=== PATIENT | female | born 1975 | race African-American/Black ===

== ENCOUNTER → 2020-04-27 | Outpatient (CLI) | payer OTHER ==
--- NOTE | 2020-05-17 16:28 | REPMRS ---
Patient History The patient states she has not had a clinical breast exam in over a year. Patient had first child at age 33. Family history of pancreatic cancer at age 50 or over in maternal grandmother. Taking hormonal contraceptives for 11 years. Digital Woman Screen Mammo: April 27, 2020 - Exam #: [id number] Bilateral CC and MLO view(s) were taken. Technologist: Belle Vallejo, Technologist Prior study comparison: 2017, bilateral digital mammo screening bilat, [facility]. FINDINGS: The breast tissue is heterogeneously dense. This may lower the sensitivity of mammography. The Volpara volumetric breast density category is: C. There is a moderate amount of heterogeneously dense fibroglandular tissue which is fairly symmetric. There is no interval development of dominant mass, architectural distortion, or grouped microcalcification typical of malignancy. There has been no change in the appearance of the mammogram from the prior studies. 3-D tomosynthesis shows no additional findings. Assessment: BI-RADS/ACR category 1 mammogram. Negative Mammogram. Recommendation Routine screening mammogram of both breasts in 1 year (for women over age 40). This patient's Lifetime Breast Cancer RIsk is estimated at 13.6 %. This mammogram was interpreted with the aid of an FDA-approved computer-aided dectection system. Electronically Signed By: Anil Knight MD 05/17/20 [id number]
== END ==
LOC: M WHC 13:52
PROVIDERS: ATTEND Nurse Practitioner Women's Health
DX: Z12.31 Encounter for screening mammogram for malignant neoplasm of breast (principal); Z80.0 Family history of malignant neoplasm of digestive organs

== ENCOUNTER 2021-01-09 08:58 | Emergency (ER) | payer OTHER ==
[~2021-01-09] VITALS: Ht 177.8 cm; Wt 89.1 kg
--- NOTE | 2021-01-09 09:21 | REP ---
INDICATION: CHEST PAIN. COMPARISON: Comparison chest x-ray is from April 01, 2009. TECHNIQUE: Portable upright AP chest radiograph. FINDINGS: The lungs are well inflated and clear. The pleural angles are sharp. Pulmonary vasculature is not increased. The heart is prominent in size unchanged from the 2009 study. No acute bony abnormality.. IMPRESSION: Prominent heart size unchanged from prior study. Otherwise no acute disease.. <Electronically signed by Anil Knight > 01/09/21 0951
[2021-01-09 09:42] LABS: BASO % 0.6 % (0.0-1.0); EOS # 0.2 10^3/uL (0.0-0.5); EOS % 3.3 % (0.0-3.0); HEMATOCRIT 41.9 % (36.0-47.0); HEMOGLOBIN 13.4 g/dl (12.0-15.5); LYMPH # 1.2 10^3/uL (1.5-5.0); LYMPH % 22.8 % (24.0-44.0); MEAN CORPUSCULAR HEMOGLOBIN 27.7 pg (27.0-33.0); MEAN CORPUSCULAR VOLUME 86.7 fl (80.0-96.0); MONO # 0.4 10^3/uL (0.0-0.8); MONO % 7.2 % (2.0-8.0); NEUTROPHILS # 3.6 10^3/uL (1.5-8.5); NEUTROPHILS % 65.7 % (36.0-66.0); PLATELET COUNT, AUTOMATED 147 10^3/uL (150-450); RED BLOOD COUNT 4.83 10^6/uL (4.00-5.40); WHITE BLOOD COUNT 5.4 10^3/uL (4.0-10.0)
[2021-01-09] MEDS ORDERED: KETOROLAC 30 MG/ML 1ML VIAL IV ONE (09:45)
[2021-01-09] MEDS ORDERED: NS 1,000 ML IV ONE (10:00)
[2021-01-09 10:20] LABS: ALT/SGPT 38 U/L (12-78); BILIRUBIN,DIRECT 0.2 MG/DL (0.0-0.2); BILIRUBIN,TOTAL 0.6 MG/DL (0.2-1.0); BLOOD UREA NITROGEN 20 MG/DL (7-18); CALCIUM LEVEL 9.1 MG/DL (8.5-10.1); CARBON DIOXIDE LEVEL 30 MEQ/L (21-32); CHLORIDE LEVEL 106 MEQ/L (98-107); CREATININE FOR GFR 0.92 MG/DL (0.55-1.30); GLOMERULAR FILTRATION RATE > 60.0 (>58); GLUCOSE, FASTING 96 MG/DL (70-100); LIPASE 98 U/L (73-393); POTASSIUM SERUM 4.6 MEQ/L (3.5-5.1); SODIUM LEVEL 140 MEQ/L (136-145); TOTAL PROTEIN 7.4 GM/DL (6.4-8.2)
[2021-01-09] MEDS ORDERED: ISOVUE-370 76% 100ML VIAL As Ordered ONE (10:29)
--- NOTE | 2021-01-09 11:05 | REP ---
INDICATION: pleuritic CP COMPARISON: None. TECHNIQUE: CT angiography of the chest after the intravenous administration of 75 cc Isovue 370. Attention pulmonary arteries. FINDINGS: There is excellent visualization of the pulmonary arterial vasculature. No focal filling defects are present that would be considered consistent with acute pulmonary emboli. There is no mediastinal or hilar adenopathy. There are no pleural or pericardial effusions. The imaged upper abdomen and imaged osseous structures are within normal limits. Evaluation of the lung saini shows lung field hypoexpansion causing scattered ground-glass asymmetric densities without a definite nodule or mass. IMPRESSION: 1. There is no evidence of pulmonary embolism. 2. Likely scattered subsegmental atelectatic changes. <Electronically signed by Anand Avina > 01/09/21 [id number]
[2021-01-09 17:15] VITALS: BP 112/62
--- NOTE | 2021-01-09 20:36 | ECGEPIP ---
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
== END 2021-01-09 17:15 | disposition home or self-care (01) ==
LOC: M ED 08:58
DX: R07.9 Chest pain, unspecified (principal); R42 Dizziness and giddiness; Z91.040 Latex allergy status
CPT/HCPCS: 71045; 71275; 80048; 80076; 83690; 84484; 85025; 93005; 93041; 94760; 96361; 96374; 99285; J1885; Q9967

== ENCOUNTER → 2021-05-26 | Outpatient (CLI) | payer OTHER ==
--- NOTE | 2021-05-26 10:45 | REPMRS ---
Patient History The patient states she had a clinical breast exam in February 2021. Patient has history of other cancer at age 34 and had first child at age 33. Family history of pancreatic cancer at age 50 or over in maternal grandmother, ovarian cancer at age 66 in mother. Taking hormonal contraceptives for 12 years. Patient states no breast complaints today. Patient has signed MRS History Sheet. Digital Woman Screen Mammo: May 26, 2021 - Exam #: [id number] Bilateral CC and MLO view(s) were taken. Technologist: Belle Vallejo, Technologist Prior study comparison: April 27, 2020, bilateral digital woman screen mammo performed at [facility]. 2017, bilateral digital mammo screening bilat, performed [facility]. FINDINGS: The breast tissue is heterogeneously dense. This may lower the sensitivity of mammography. Screening. Digital screening (2D) mammography was performed bilaterally in the CC and MLO projections. Additionally, breast tomosynthesis (3D mammography) was performed bilaterally in the CC and MLO projections. Todays exam was compared to the prior exam/exams. By history, the patient has no complaints of a palpable breast abnormality or other significant breast complaints. The Volpara volumetric breast density category is C, the breasts are heterogenously dense which may obscure small masses. The breasts are unchanged in size and shape. There are no jay-soft tissue densities or spiculated masses. There is no internal architectural distortion. There are no suspicious jay-calcific clusters. Skin thickening or nipple retraction is not present. IMPRESSION: BI-RADS Category 2- Benign Findings. There is no evidence of malignant alteration of the breasts. Followup examination recommended in one year. This mamm[facility],an FDA approved computer aided detection system for mammography. The lifetime Tyrer-Cuzick score is 13.8% Negative x-ray reports should not delay surgical consultation if a dominant or clinically suspicious mass is present. Due to the density of the breasts, MRI/whole breast screening ultrasound is warranted. Not all breast cancers can be identified by mammography. Therefore, we recommend that you continue to perform regular breast self-examination and physical examination and then promptly contact your physician of any concerns or changes. Adenosis and dense breasts may obscure an underlying neoplasm. No significant changes when compared with prior studies. Assessment: BI-RADS/ACR category 2 mammogram. Benign Findings. Recommendation Routine screening mammogram of both breasts in 1 year. Electronically Signed By: Shar Neff MD 05/26/21 [id number]
== END ==
LOC: M WHC 08:34
PROVIDERS: ATTEND Advanced Practice Midwife
DX: Z12.31 Encounter for screening mammogram for malignant neoplasm of breast (principal)